=== PATIENT | male | born 1965 | race Caucasian/White ===

== ENCOUNTER 2019-08-11 13:24 | Emergency (ER) | payer OTHER, BC, SELFPAY ==
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
[2019-08-11 13:27] VITALS: BP 142/98; PULSE 104; RESP 18; TEMP 36.3; O2SAT 98
--- NOTE | 2019-08-11 14:37 | PC.NURSE ---
pt at xray at this time
[2019-08-11] MEDS: KETOROLAC (*BKC) 60 MG/2 ML VIAL IM (14:45)
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
[2019-08-11 15:42] VITALS: BP 141/89; PULSE 80; RESP 16; TEMP 37.6; O2SAT 98
== END 2019-08-11 15:43 | disposition home or self-care (01) ==
PROVIDERS: Emergency Provider Emergency Medicine; PCP Family Medicine
DX: S39.012A Strain of muscle, fascia and tendon of lower back, initial encounter (principal); S29.012A Strain of muscle and tendon of back wall of thorax, initial encounter; E78.5 Hyperlipidemia, unspecified; V49.40XA Driver injured in collision with unspecified motor vehicles in traffic accident, initial encounter
CPT/HCPCS: 72072; 72100; 96372; 99283; J1885

== ENCOUNTER → 2022-07-08 13:30 | Outpatient (CLI) | payer BC, SELFPAY ==
--- NOTE | ~2022-07-08 | MR_ITS ---
EXAMINATION: MR ankle LT wo/w con DATE: 07/08/2022 14:40 INDICATION: Tarsal tunnel syndrome TECHNIQUE: Magnetic resonance imaging (MRI) of the left ankle was performed without intravenous contr ast. Sequences included sagittal, coronal, and axial proton-density weighted fast spin echo without a nd with fat saturation. COMPARISON: None. FINDINGS: Medial ankle ligaments: Deep and superficial deltoid ligaments as well as the spring ligament are normal. Lateral ankle ligaments: The anterior and posterior inferior tibiofibular ligaments are normal. Complete tear of the anterior talofibular ligament with torn ligament retracted along the anterolateral margin of the tip the later al malleolus. The calcaneofibular and posterior talofibular ligaments are normal. Tendons: Achilles tendon is normal. The peroneus longus and brevis tendons are normal. The tibialis anterior a nd extensor hallucis longus and extensor digitorum longus tendons are normal. The tibialis posterior, flexor digitorum longus and flexor hallucis longus tendons are normal. Plantar fascia: The central and lateral components of the plantar aponeurosis appear normal. There is architectural d istortion of the medial compartment of the plantar aponeurosis and more distal abductor hallucis brev is muscle resulting from what appears to be a lobular region of hypertrophied subcutaneous fat which is relatively devoid of the septation seen in the more superficial subcutaneous fat. There is however no discrete surrounding peripheral capsule to suggest a lipoma. The hypertrophied fat projects into, distorting and partially encompassing some of the aponeurosis and associated muscle fibers. The [place] on of fat measures approximately 8 cm in proximal to distal length along the axis of the aponeurosis and muscle and 2.9 x 2.0 cm in maximal orthogonal dimensions. This located along the plantar/medial m argin of the distal aspect of the tarsal tunnel. Bones/other: Bone alignment is normal. Normal marrow signal throughout with no reactive edema, fracture or patholo gic marrow replacing process. Joint spaces appear normal at the left ankle and visualized mid and hin dfoot. No abnormally enhancing lesions identified. Fluid: Physiologic amount fluid in the joint spaces. There is a loculated fluid collection extending along t he extensor digitorum longus tendon beginning proximally at the distal myotendinous junction approxim ately 1 cm above level of the tibiotalar joint line and extending 6.5 cm distally to the level of the division into the individual slip of the tendon extending to the toes. Differential would include fl uid in the tendon sheath related to tenosynovitis however although nearly completely encompassing the tendon locations are appears be a thin septation extending through the fluid which suggests this mor e likely to represent a ganglion cyst partially encircling the tendon sheath. There is suggestion of a thin neck extending to the dorsolateral aspect of the talonavicular joint. No other abnormal fluid collections identified. IMPRESSION: 1. Likely fatty pseudomass with hypertrophy of the subcutaneous fat which appears to exert mass effec t upon the medial compartment of the plantar aponeurosis proximally and the abductor umbilicus brevis muscle more distally. This could result in compression of the tarsal tunnel and impingement on the p lantar nerve which are positioned dorsal/lateral to the fatty pseudomass. Differential would include an intramuscular lipoma however there is no clearly defined peripheral capsule and this is considered less likely. 2. 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 3. Loculated fluid collection extending along the extensor digitorum longus tendon with configuration favoring a ganglion cyst over tenosynovitis. Reviewed, dictated and final
== END ==
PROVIDERS: PCP Family Medicine; Visit Provider Podiatrist Foot & Ankle Surgery
DX: G57.52 Tarsal tunnel syndrome, left lower limb (principal)
CPT/HCPCS: 73723; A9577